=== PATIENT | male | born 1985 | race Caucasian/White ===

== ENCOUNTER 2017-10-30 09:40 | Outpatient (CLI) | END 2017-10-30 09:41 | disposition home or self-care (01) | CPT/HCPCS: 23350; 73222; 77002; Q9961 ==

== ENCOUNTER 2017-11-29 13:12 | Outpatient (CLI) | payer OTHER ==
--- NOTE | 2017-11-29 15:39 | Ultrasound Report ---
Procedure Date: 11/29/2017 Accession Number: [id number] / [id number] Procedure: US - Injection Single Tendon CPT Code: 36095 FULL RESULT: EXAM: Injection Single Tendon DATE: 11/29/2017 2:50 PM CLINICAL HISTORY: BICIPITAL TENDINITIS, UNSPECIFIED SHOULDER COMPARISON: None. TECHNIQUE AND FINDINGS: The patient was brought to the ultrasound procedure room. Informed written consent was obtained. The patient was placed in the supine position. Preliminary ultrasound of the right shoulder region was performed. Targeted area was marked and prepped in a sterile fashion. Under live ultrasound guidance, 2 mL of a 1-1 mixture of 2% Xylocaine and Depo-Medrol was injected into the right biceps tendon sheath. A Band-Aid was applied. The patient appeared to tolerate the procedure well. IMPRESSION: Right biceps tendon sheath steroid injection under ultrasound guidance. [facility]
[2017-11-29] MEDS ORDERED: LIDOCAINE 1% 2 ML VIAL SUBQ ONE (17:19)
[2017-11-29] MEDS ORDERED: methylPREDNISolone ACETATE 40 MG/ML VIAL IU ONE (17:19)
== END 2017-11-29 13:13 | disposition home or self-care (01) ==
LOC: DI 13:12
PROVIDERS: ATTEND Orthopaedic Surgery
DX: M75.21 Bicipital tendinitis, right shoulder (principal)
CPT/HCPCS: 20550; J1030

== ENCOUNTER 2018-10-17 09:26 | Outpatient (CLI) | payer OTHER ==
[2018-10-17] MEDS ORDERED: GADOPENTETATE DIMEGLUMINE 5 ML VIAL IVP ONE ×3 (09:27→10:32)
[2018-10-17] MEDS ORDERED: BUFFERED LIDOCAINE 10 ML SYRINGE IU ONE ×2 (09:27→10:32)
[2018-10-17] MEDS ORDERED: IOTHALAMATE MEGLUMINE 50 ML VIAL IVP ONE ×2 (09:27→10:32)
[2018-10-17] MEDS ORDERED: IOTHALAMATE MEGLUMINE 50 ML VIAL ONE ×2 (09:37→10:39)
--- NOTE | 2018-10-17 10:37 | XRAY Report ---
Reason: UNSPECIFIED ROTATOR CUFF TEAR OR RUPTURE OF RIGHT Procedure Date: 10/17/2018 Accession Number: [id number] / [id number] Procedure: FL - Arthrogram Needle Placement CPT Code: FULL RESULT: EXAM: FLUOROSCOPIC GUIDANCE EXAM DATE: 10/17/2018 10:09 AM. CLINICAL HISTORY: Right shoulder pain. Suspected rotator cuff tear. This procedure is performed prior to right shoulder MR arthrogram. COMPARISON: None. FINDINGS: Informed consent was obtained. Using sterile technique and local anesthetic, a 22-gauge spinal needle was placed into the right humeral joint under fluoroscopic guidance. A spot radiograph was obtained to document intra-articular needle tip position. The following solution was injected into the joint space: Gadolinium based contrast 0.2 mL, normal saline 8 mL, and iodinated contrast 8 mL. No complications. IMPRESSION: Fluoroscopic guidance provided for right shoulder arthrogram prior to MR arthrogram. Total fluoroscopy time: 90 seconds. Number of images: 1. RADIA
--- NOTE | 2018-10-18 08:52 | MRI Report ---
Reason: UNSPECIFIED ROTATOR CUFF TEAR OR RUPTURE OF RIGHT Procedure Date: 10/17/2018 Accession Number: [id number] / [id number] Procedure: MRI - Arthrogram Shoulder RT CPT Code: FULL RESULT: EXAM: RIGHT SHOULDER MRI ARTHROGRAM WITH CONTRAST EXAM DATE: 10/17/2018 11:15 AM. CLINICAL HISTORY: Right shoulder pain. COMPARISON: MRI ARTHROGRAM SHOULDER RT 10/30/2017 9:44 AM. TECHNIQUE: Multiplanar, multisequence T1-weighted and fluid-sensitive sequences of the shoulder after an arthrographic injection of dilute gadolinium, dictated under a separate exam. Other: None. FINDINGS: Acromioclavicular Region: The acromion is type II. The acromioclavicular joint is unremarkable. The coracoacromial and coracoclavicular ligaments are intact. There is no contrast or fluid in the subacromial/subdeltoid bursa. Glenohumeral Region: No subluxation. No loose bodies. The articular cartilage is unremarkable. The glenohumeral ligaments and joint capsule are unremarkable. Bone Marrow: No fracture, marrow edema or bone lesions. Labrum: The labrum is unremarkable. Biceps Tendon: The long head of the biceps tendon and biceps jody are intact. Musculature/Rotator Cuff: The supraspinatus tendon is unremarkable. As before, there is an approximately 1.8 x 0.7 cm low to moderate grade (less than 50% thickness) partial-thickness intrasubstance and articular surface insertional tear at the distal end of the infraspinatus tendon. The teres minor and subscapularis tendons are unremarkable. No edema or fatty atrophy. Other: The subcutaneous tissues are unremarkable. IMPRESSION: 1. Persistent low to moderate grade partial-thickness intrasubstance and articular surface insertional tear at the distal end of the infraspinatus tendon. 2. No full-thickness rotator cuff tear. 3. No labral tear. RAD[facility]
== END 2018-10-17 09:27 | disposition home or self-care (01) ==
LOC: DI 09:26
PROVIDERS: ATTEND Orthopaedic Surgery
DX: M75.101 Unspecified rotator cuff tear or rupture of right shoulder, not specified as traumatic (principal)
CPT/HCPCS: 23350; 73222; 77002; Q9961